=== PATIENT | female | born 1940 | race Asian ===

== ENCOUNTER 2021-12-16 02:11 | Emergency (ER) | payer MEDICARE, SELFPAY ==
[2021-12-16] VITALS (12 sets, daily range): BP systolic 138–180; BP diastolic 64–81; PULSE 68–75; RESP 16–22; TEMP 37; O2SAT 97–100
--- NOTE | 2021-12-16 02:28 | ED.GENADULT ---
HPI - General Adult General Chief complaint: Syncope Stated complaint: syncope Time Seen by Provider: 12/16/21 02:12 Source: patient and EMS Mode of arrival: EMS History of Present Illness HPI narrative: 81-year-old woman currently staying with her daughter with stage IV stomach cancer presents after having multiple syncopal episodes at home today. Medics report that her family heard her fall in the bathroom. She states that she got up to go to the bathroom because her hemorrhoid was bothering her so much. She noted that she is just weak all over but has no specific complaints. She has not had a fever, cough, abdominal pain, vomiting, diarrhea. She reports no headaches no focal neurologic findings. She states that this has happened previously after she got her 2nd COVID vaccine and resolved within a day or so. She notes that she is not on blood thinners she did hit her head but did not lose consciousness. She does not describe any palpitations or seizure-like activity she simply says she was too weak to stand up anymore. Related Data Allergies Allergy/AdvReac Type Severity Reaction Status Date / Time No Known Drug Allergies Allergy Verified 12/16/21 02:40 Review of Systems Review of Systems Narrative: Remainder of complete review of systems is otherwise unremarkable except for that included in the HPI. Patient History Medical History (Updated 12/16/21 @ 05:57 by Merlyn Oro MD) Stomach cancer Exam Initial Vital Signs Initial Vital Signs: Vital Signs Pulse Rate 74 12/16/21 02:15 Respiratory Rate 17 12/16/21 02:15 Pulse Oximetry 100 12/16/21 02:15 General: Quite thin, frail-appearing but in no acute distress. Able to give a complete and coherent history. HEENT: Moist mucous membranes, normal sclera with reactive pupils, no trauma to head or scalp Neck: No JVD, supple, no midline tenderness Respiratory: Lungs are clear to auscultation, no wheezing no rales no rhonchi. Full and symmetrical air movement Chest: port side in place right upper chest wall Cardiac: Regular rate and rhythm no murmurs no bruits Abdomen: Soft, nontender, good bowel tones, no flank pain Rectum: There is a 2 x 2 cm thrombosed hemorrhoid with some superficial irritation and minor bleeding Skin: Warm and dry, no rashes Neurologic: Globally weak but Grossly neurologically intact with no obvious asymmetries or abnormalities Extremities: No trauma, well perfused Psych: Cooperative, appropriate insight and affect Course Orders Ordered: ED Orders 12/16/21 EKG-12 Lead Routine 12/16/21 02:44 XR chest 1V Stat 12/16/21 02:55 Blood Culture Stat Complete Blood Count AUTO DIFF Stat Comprehensive Metabolic Panel Stat D Dimer Stat Lactate (Lactic Acid) Stat Magnesium Stat Procalcitonin Stat Troponin I Stat 12/16/21 03:01 CT head/brain wo con Stat 12/16/21 03:20 COVID19 -Nasal RAPID/Pre-Proc Stat 12/16/21 03:40 Urinalysis and Microscopic Stat 12/16/21 03:57 CT angio chest PE protocol Stat Sodium Chloride (Normal Saline 0.9%) 1,000 mls @ 500 mls/hr IV BOLUS ONE Stop: 12/16/21 05:56 Last Infusion: 12/16/21 05:25 Dose: 0 mls/hr Documented by: Admin: 12/16/21 04:06 Dose: 500 mls/hr Documented by: ABRAM Discontinued Medications Lidocaine HCl (Lidocaine 1% (Pf) 5 Ml) 1 ml SUBCUT NOW ONE Stop: 12/16/21 02:30 Last Admin: 12/16/21 05:26 Dose: Not Given Documented by: LON Vital Signs Vital signs: Vital Signs - 8 hr 12/16/21 02:15 12/16/21 02:17 12/16/21 02:30 Temperature 98.6 F Pulse Rate 74 72 75 Respiratory Rate 17 16 22 Blood Pressure 180/81 H Pulse Oximetry 100 98 100 12/16/21 03:00 12/16/21 03:20 Temperature Pulse Rate 69 68 Respiratory Rate Blood Pressure 151/74 H Pulse Oximetry 99 97 Medical Decision Making Lab Data Result diagrams: 12/16/21 02:55 12/16/21 02:55 Labs: Lab Results 12/16/21 12/16/21 12/16/21 Range/Units 02:55 02:55 02:55 WBC 3.6 L (4.5-11.0) X10^3/uL RBC 3.78 L (4.0-5.2) X10^6/uL Hgb 11.3 L (12.0-16.0) g/dL Hct 33.6 L (36-46) % MCV 89.1 (80-100) fL MCH 30.0 (26-34) PG MCHC 33.7 (30-36) % RDW 27.5 H (11.6-14.8) % Plt Count 211 (150-400) X10^3/uL Neut % (Auto) 58.3 (50-75) % Lymph % (Auto) 25.8 (25-40) % [place]comb % (Auto) 12.0 (3-14) % Eos % (Auto) 3.1 (2-4) % Baso % (Auto) 0.8 (0-2) % Neut # (Auto) 2100 (1101-9860) /uL Lymph # (Auto) 900 L (5936-9482) /uL Lipscomb # (Auto) 400 (0-900) /uL Eos # (Auto) 100 (0-450) /uL Baso # (Auto) 0 (0-100) /uL RBC Morphology See below Dimorphic RBCs * D-Dimer 910 H (<230) ng/mL Sodium 137 (137-145) mmol/L Potassium 3.6 (3.4-5.1) mmol/L Chloride 103 (98-107) mmol/L Carbon Dioxide 30 (22-32) mmol/L BUN 18 H (7-17) mg/dL Creatinine 0.53 (0.52-1.04) mg/dL Estimated GFR > 60.0 (>60) mL/min BUN/Creatinine Ratio 34.0 H (6-22) Glucose 139 H (80-110) mg/dL Lactate (0.7-2.1) mmol/L Calcium 9.1 (8.4-10.2) mg/dL Magnesium 2.2 (1.6-2.3) mg/dL Total Bilirubin 0.4 (0.2-1.3) mg/dL AST 28 (14-36) IU/L ALT 16 (<35) IU/L Alkaline Phosphatase 76 (38-126) U/L Troponin I (0.01-0.034) ng/mL Total Protein 7.1 (6.3-8.2) g/dL Albumin 3.8 (3.5-5.0) g/dL Globulin 3.3 (1.7-4.1) g/dL Albumin/Globulin Ratio 1.2 (1.0-2.8) Procalcitonin (<0.5) ng/mL Urine Color Urine Appearance Urine pH (4.5-8.0) Ur Specific [place] (1.000-1.035) Urine Protein (Negative) Urine Glucose (UA) (Negative) g/dL Urine Ketones (NEGATIVE) Urine Occult Blood (Negative) Urine Nitrate (Negative) Urine Bilirubin (NEGATIVE) Urine Urobilinogen (0.2) E.U./dL Ur Leukocyte Esterase (NEGATIVE) Urine RBC (0-5/HPF) Urine WBC (0-5/HPF) Urine Bacteria (None) Ur Culture Indicated? SARS-CoV-2 (PCR) (Negative) 12/16/21 12/16/21 12/16/21 Range/Units 02:55 02:55 03:20 WBC (4.5-11.0) X10^3/uL RBC (4.0-5.2) X10^6/uL Hgb (12.0-16.0) g/dL Hct (36-46) % MCV (80-100) fL MCH (26-34) PG MCHC (30-36) % RDW (11.6-14.8) % Plt Count (150-400) X10^3/uL Neut % (Auto) (50-75) % Lymph % (Auto) (25-40) % Lipscomb % (Auto) (3-14) % Eos % (Auto) (2-4) % Baso % (Auto) (0-2) % Neut # (Auto) (5087-5105) /uL Lymph # (Auto) (2121-1462) /uL Lipscomb # (Auto) (0-900) /uL Eos # (Auto) (0-450) /uL Baso # (Auto) (0-100) /uL RBC Morphology Dimorphic RBCs D-Dimer (<230) ng/mL Sodium (137-145) mmol/L Potassium (3.4-5.1) mmol/L Chloride (98-107) mmol/L Carbon Dioxide (22-32) mmol/L BUN (7-17) mg/dL Creatinine (0.52-1.04) mg/dL Estimated GFR (>60) mL/min BUN/Creatinine Ratio (6-22) Glucose (80-110) mg/dL Lactate 0.8 (0.7-2.1) mmol/L Calcium (8.4-10.2) mg/dL Magnesium (1.6-2.3) mg/dL Total Bilirubin (0.2-1.3) mg/dL AST (14-36) IU/L ALT (<35) IU/L Alkaline Phosphatase (38-126) U/L Troponin I < 0.012 (0.01-0.034) ng/mL Total Protein (6.3-8.2) g/dL Albumin (3.5-5.0) g/dL Globulin (1.7-4.1) g/dL Albumin/Globulin Ratio (1.0-2.8) Procalcitonin 0.12 (<0.5) ng/mL Urine Color Urine Appearance Urine pH (4.5-8.0) Ur Specific [place] (1.000-1.035) Urine Protein (Negative) Urine Glucose (UA) (Negative) g/dL Urine Ketones (NEGATIVE) Urine Occult Blood (Negative) Urine Nitrate (Negative) Urine Bilirubin (NEGATIVE) Urine Urobilinogen (0.2) E.U./dL Ur Leukocyte Esterase (NEGATIVE) Urine RBC (0-5/HPF) Urine WBC (0-5/HPF) Urine Bacteria (None) Ur Culture Indicated? SARS-CoV-2 (PCR) Negative (Negative) 12/16/21 Range/Units 03:40 WBC (4.5-11.0) X10^3/uL RBC (4.0-5.2) X10^6/uL Hgb (12.0-16.0) g/dL Hct (36-46) % MCV (80-100) fL MCH (26-34) PG MCHC (30-36) % RDW (11.6-14.8) % Plt Count (150-400) X10^3/uL Neut % (Auto) (50-75) % Lymph % (Auto) (25-40) % Lipscomb % (Auto) (3-14) % Eos % (Auto) (2-4) % Baso % (Auto) (0-2) % Neut # (Auto) (8744-1437) /uL Lymph # (Auto) (6720-5748) /uL Lipscomb # (Auto) (0-900) /uL Eos # (Auto) (0-450) /uL Baso # (Auto) (0-100) /uL RBC Morphology Dimorphic RBCs D-Dimer (<230) ng/mL Sodium (137-145) mmol/L Potassium (3.4-5.1) mmol/L Chloride (98-107) mmol/L Carbon Dioxide (22-32) mmol/L BUN (7-17) mg/dL Creatinine (0.52-1.04) mg/dL Estimated GFR (>60) mL/min BUN/Creatinine Ratio (6-22) Glucose (80-110) mg/dL Lactate (0.7-2.1) mmol/L Calcium (8.4-10.2) mg/dL Magnesium (1.6-2.3) mg/dL Total Bilirubin (0.2-1.3) mg/dL AST (14-36) IU/L ALT (<35) IU/L Alkaline Phosphatase (38-126) U/L Troponin I (0.01-0.034) ng/mL Total Protein (6.3-8.2) g/dL Albumin (3.5-5.0) g/dL Globulin (1.7-4.1) g/dL Albumin/Globulin Ratio (1.0-2.8) Procalcitonin (<0.5) ng/mL Urine Color Yellow Urine Appearance Clear Urine pH 5 (4.5-8.0) Ur Specific [place] 1.015 (1.000-1.035) Urine Protein Negative (Negative) Urine Glucose (UA) Negative (Negative) g/dL Urine Ketones Negative (NEGATIVE) Urine Occult Blood 1+ H (Negative) Urine Nitrate Negative (Negative) Urine Bilirubin Negative (NEGATIVE) Urine Urobilinogen Normal (0.2) E.U./dL Ur Leukocyte Esterase Negative (NEGATIVE) Urine RBC 1-5/hpf (0-5/HPF) Urine WBC None seen (0-5/HPF) Urine Bacteria None seen (None) Ur Culture Indicated? Cult not indicated SARS-CoV-2 (PCR) (Negative) Imaging Data Chest x-ray: Radiologist's Impression: No acute findings Rizwan Connolly MD CT scan - head: Radiologist's Impression: No acute intracranial findings Rizwan Connolly MD CT scan - chest: Radiologist's Impression: No pulmonary emboli. No acute finding in the chest. Abnormal thickening of the stomach with a history of gastric cancer reported Rizwan Connolly MD ECG Data Interpretation: Sinus rhythm at a rate of 69 Minor sinus arrhythmia Normal intervals, normal axis No acute ischemic changes MDM Narrative Medical decision making narrative: 81-year-old woman with stage IV stomach cancer and a very painful thrombosed hemorrhoid with a syncopal episode x2 today. She did fall and hit her head. Her daughter is no available to supplement history. She corroborates everything already recorded and notes that her mom does have episodes of syncope on a relatively regular basis typically associated with some type of pain such as the hemorrhoidal pain that had her out of bed and going to the bathroom in the 1st place this evening. We discussed labs and CT findings. Will happily share all of this with patient and her daughter to take to her providers in [place]. Because of the elevated D-dimer will go ahead and do a PE study to make sure there is no significant chest abnormalities to explain the syncopal episode today. At this time there is no evidence of sepsis, stroke, intracranial hemorrhage, significant dehydration, worsening anemia, acute coronary syndrome or pneumonia. Discharge Plan Departure Patient Disposition: Home Clinical Impression: Syncope, External hemorrhoid, thrombosed Instructions: DI for Syncope in Adults (Fainting) Activity Restrictions/Additional Instructions: Thank you for coming in today Your workup was entirely reassuring. There is no evidence of acute infection, sepsis, pneumonia, bladder infection, acute coronary syndrome, stroke, blood clots in your lungs, seizure or other findings that would require additional workup or hospitalization. You were given 500 cc of saline in the emergency department. At this time it is safe for you to go home. I have given you copies of all of your blood work, the preliminary readings of the chest x-ray, head CT as well as chest CT scan. He of new or worsening symptoms, please feel free to return to the ER
--- NOTE | 2021-12-16 02:44 | DI.RAD.S_ITS ---
PROCEDURE: XR CHEST 1V INDICATIONS: syncope TECHNIQUE: One view of the chest was acquired. COMPARISON: [facility], CT, CT ANGIO CHEST PE PROTOCOL, 12/16/2021, 4:06. FINDINGS: Surgical changes and devices: Right-sided port with the catheter tip projecting at the upper right atrium. Lungs and pleura: Lungs are clear. Prominent lung volumes. No pleural effusions or pneumothorax. Mediastinum: Mediastinal contours appear normal. Heart size is normal. Bones and chest wall: No suspicious bony lesions. Overlying soft tissues appear unremarkable. IMPRESSION: No acute cardiopulmonary abnormality. This report is concordant with the overnight preliminary interpretation. Dictated by: Amado Hay M.D. on 12/16/2021 at 7:30 Approved by: Amado Hay M.D. on 12/16/2021 at 7:31
--- NOTE | 2021-12-16 03:01 | DI.CT.S_ITS ---
PROCEDURE: CT HEAD/BRAIN WO CON INDICATIONS: fall, syncope,hit head TECHNIQUE: Noncontrast 4.5 mm thick angled axial sections acquired from the foramen magnum to the vertex, with coronal and sagittal reformats. For radiation dose reduction, the following was used: automated exposure control, adjustment of mA and/or kV according to patient size. COMPARISON: None. FINDINGS: Image quality: Excellent. CSF spaces: Basal cisterns are patent. No extra-axial fluid collections. The ventricles are symmetric in size and shape. Brain: No intracranial bleeds or masses. There is cerebral volume loss for age, with resultant ventricular and sulcal prominence. There are periventricular and deep white matter chronic small vessel ischemic changes. There is intracranial internal carotid artery atherosclerosis. Skull and face: Calvarium and visualized facial bones appear intact, without suspicious lesions. Sinuses: Visualized sinuses and mastoids are clear. IMPRESSION: No evidence acute intracranial process. Comment: Final report is concordant with preliminary interpretation provided by [facility]. Dictated by: Floyd Collins M.D. on 12/16/2021 at 7:45 Approved by: Floyd Collins M.D. on 12/16/2021 at 7:45
[2021-12-16 03:15] LABS: Basophils Absolute Auto 0 /uL (0-100); Basophils Percent Auto 0.8 % (0-2); Eosinophils Absolute Auto 100 /uL (0-450); Eosinophils Percent Auto 3.1 % (2-4); Hematocrit 33.6 % (36-46); Hemoglobin 11.3 g/dL (12.0-16.0); Lymphocytes Absolute Auto 900 /uL (1100-4500); Lymphocytes Percent Auto 25.8 % (25-40); Mean Corpuscular HGB Conc 33.7 % (30-36); Mean Corpuscular Volume 89.1 fL (80-100); Monocytes Absolute Auto 400 /uL (0-900); Neutrophils Absolute Auto 2100 /uL (1500-7000); Neutrophils Percent Auto 58.3 % (50-75); Platelet Count 211 X10^3/uL (150-400); Red Blood Cell Count 3.78 X10^6/uL (4.0-5.2); Red Cell Distribution Width 27.5 % (11.6-14.8); White Blood Cell Count 3.6 X10^3/uL (4.5-11.0)
[2021-12-16 03:16] LABS: Add Manual Diff / Slide Review SLIDE REVIEW
[2021-12-16 03:21] LABS: D Dimer 910 ng/mL (<230)
[2021-12-16 03:37] LABS: Lactate (Lactic Acid) 0.8 mmol/L (0.7-2.1)
[2021-12-16 03:38] LABS: Alanine Aminotransferase 16 IU/L (<35); Albumin 3.8 g/dL (3.5-5.0); Albumin Globulin Ratio 1.2 (1.0-2.8); Alkaline Phosphatase 76 U/L (38-126); Aspartate Aminotransferase 28 IU/L (14-36); Bilirubin Total 0.4 mg/dL (0.2-1.3); Blood Urea Nitrogen 18 mg/dL (7-17); Calcium 9.1 mg/dL (8.4-10.2); Carbon Dioxide 30 mmol/L (22-32); Chloride 103 mmol/L (98-107); Estimated Glomerular Filt Rate > 60.0 mL/min (>60); Globulin 3.3 g/dL (1.7-4.1); Glucose 139 mg/dL (80-110); HEMOLYSIS < 15 (0-50); Magnesium 2.2 mg/dL (1.6-2.3); Potassium 3.6 mmol/L (3.4-5.1); Sodium 137 mmol/L (137-145); Total Protein 7.1 g/dL (6.3-8.2)
[2021-12-16 03:42] LABS: COVID19 -Nasal RAPID Negative (Negative)
[2021-12-16 03:52] LABS: Troponin I < 0.012 ng/mL (0.01-0.034)
[2021-12-16 03:57] LABS: Procalcitonin 0.12 ng/mL (<0.5)
--- NOTE | 2021-12-16 03:57 | DI.CT.S_ITS ---
PROCEDURE: CT ANGIO CHEST PE PROTOCOL INDICATIONS: syncope, elevated d-dimer TECHNIQUE: After the administration of intravenous contrast, 2 mm thick sections acquired from the pulmonary apices to the posterior costophrenic angles. 3-dimensional maximum intensity projection (MIP) coronal and sagittal reformats were then acquired through the thorax. For radiation dose reduction, the following was used: automated exposure control, adjustment of mA and/or kV according to patient size. COMPARISON: [facility], CR, XR CHEST 1V, 12/16/2021, 2:52. FINDINGS: Image quality: Excellent. Pulmonary arteries: Pulmonary arteries are normal in size, and demonstrate no intraluminal filling defects to suggest central pulmonary embolism. Lungs and pleura: No acute airspace opacity. A few calcified granuloma. Mild pleural apical scarring. No pleural effusions or pneumothorax. Central and peripheral airways are patent. Mediastinum: Heart size is normal, without pericardial effusion. Coronary artery calcifications. No mediastinal or hilar adenopathy. Thoracic aorta is normal in caliber and enhancement. Esophagus is normal in caliber, without hiatal hernia. Bones and chest wall: Right-sided port with the catheter tip in the right atrium. Small circumscribed lucency at T8. Ribs and thoracic spine appear intact throughout. Thyroid gland demonstrates several bilateral thyroid nodules. Largest measuring 1.2 cm on the left, (5/18). No axillary or supraclavicular adenopathy. Abdomen: Stomach is only partially visualized. There is thickening in the region of the gastric antrum appreciated. No free air in the visualized upper abdomen. No free fluid is seen. Hypodense focus at the dome of the liver, (5/105). There may be peripheral nodular discontinuous enhancement or punctate calcification. Small splenule. Moderate aortic plaque. IMPRESSION: 1. No pulmonary embolism. 2. No acute airspace opacity. No pleural effusion. 3. Abnormal thickening of the partially visualized stomach in this patient with known gastric cancer. 4. Hypodensity at the dome of the liver. Likely a small hemangioma. 5. Small lucency at T8. Low suspicion for metastatic disease. Recommend comparison with prior cross-sectional imaging of the chest and abdomen if available. No significant discrepancy with the overnight preliminary interpretation. Dictated by: Amado Hay M.D. on 12/16/2021 at 7:38 Approved by: Amado Hay M.D. on 12/16/2021 at 7:55
[2021-12-16 04:00] LABS: Color Urine UA Yellow
[2021-12-16 04:01] LABS: Appearance Urine UA Clear; Bilirubin Urine UA NEGATIVE (NEGATIVE); Glucose Urine UA NEGATIVE (Negative); Ketones Urine UA NEGATIVE (NEGATIVE); Nitrite Urine UA NEGATIVE (Negative); Occult Blood Urine UA 1+ (Negative); Protein Urine UA NEGATIVE (Negative); Specific Gravity Urine UA 1.015 (1.000-1.035); pH Urine UA 5 (4.5-8.0)
[2021-12-16 04:02] LABS: Leukocyte Esterase Urine UA NEGATIVE (NEGATIVE); Urobilinogen Urine UA Normal E.U./dL (0.2)
[2021-12-16] MEDS: SODIUM CHLORIDE 0.9% 1,000 ML 500 ML IV (04:06)
[2021-12-16 04:09] LABS: Bacteria Urine None Seen; Culture Indicated Urine Cult Not Indicated; RBC Urine 1-5/HPF (0-5/HPF); WBC Urine None Seen (0-5/HPF)
== END 2021-12-16 06:29 | disposition home or self-care (01) ==
PROVIDERS: Emergency Provider Emergency Medicine
DX: R55 Syncope and collapse (principal); K64.5 Perianal venous thrombosis; R79.1 Abnormal coagulation profile; S09.90XA Unspecified injury of head, initial encounter; W19.XXXA Unspecified fall, initial encounter; Y92.89 Other specified places as the place of occurrence of the external cause; Z20.822 Contact with and (suspected) exposure to COVID-19
CPT/HCPCS: 36415; 70450; 71045; 71275; 80053; 81001; 83605; 83735; 84145; 84484; 85025; 85379; 87040; 87635; 93005; 93010; 96360; 99284; C9803; J1642; Q9967